=== PATIENT | female | born 1985 | race Caucasian/White ===

== ENCOUNTER 2016-10-28 23:36 | Emergency (ER) | payer BC, OTHER ==
[~2016-10-28] VITALS: Ht 175.3 cm; Wt 91.9 kg
[~2016-10-28 23:36] MED LIST: BCPILLS PO; BUPRTAB51 PO; OXYC1TAB3 PO; ZOLP10TA PO
[2016-10-28 23:46] VITALS: TEMP 36.5; Ht 175.3 cm; Wt 91.9 kg
[2016-10-29] MEDS ORDERED: ONDANSETRON INJ 2 MG/ML 2 ML VIAL IV STA (00:13)
[2016-10-29] MEDS ORDERED: MoRPHine SULFATE 4 MG/ML 1 ML CARP\\VIAL IV STA (00:13)
[2016-10-29 01:10] LABS: BASO % 0.3 %; BASO ABS # 0.03 K/uL (0-0.2); COMPLETE YES; EOS % 0.7 %; HEMATOCRIT 35.8 % (37-47); IG% 0.1 %; LYMPH % 28.7 %; LYMPH ABS # 2.92 K/uL (1.2-3.4); MEAN CELL VOLUME 91.1 fL (80-100); MEAN CORPUSCULAR HEMOGLOBIN 30.8 pg (25-34); MEAN CORPUSCULAR HGB CONC 33.8 g/dl (32-36); MEAN PLATELET VOLUME 9.6 fL (7.4-10.4); MONO % 7.5 %; NEUT % 62.7 %; PLATELET COUNT 375 K/uL (130-400); RED BLOOD COUNT 3.93 M/uL (4.2-5.4); WHITE BLOOD COUNT 10.16 K/uL (4.8-10.8)
[2016-10-29 01:21] LABS: URINE APPEARANCE CLEAR (CLEAR); URINE BILIRUBIN NEG (NEG); URINE COLOR YELLOW; URINE EPITHELIAL CELL AUTO >30 /lpf (0-5); URINE NITRITE NEG (NEG); URINE PH 5.5 (4.5-7.5); URINE SPECIFIC GRAVITY 1.028 (1.000-1.030); UROBILINOGEN NEG (NEG); ZZUR CULT IF INDIC CLEAN CATCH YES
[2016-10-29 01:24] LABS: MANUAL MICROSCOPIC REQUIRED? NO; REVIEW REQ? NO
[2016-10-29 01:28] LABS: BUN/CREATININE RATIO 21.9 (10-20); CALCIUM 8.7 mg/dl (8.5-10.1); CREATININE 0.58 mg/dl (0.60-1.20); POTASSIUM 3.7 mmol/L (3.5-5.1)
[2016-10-29 01:38] LABS: PREG INTERNAL NEGATIVE QC NEG CLEAR BACKGROUND; PREG INTERNAL POSITIVE QC POS CONTROL LINE
--- NOTE | 2016-10-29 02:40 | EMERGENCY ROOM VISIT NOTE ---
History First contact with patient: 00:09 Chief Complaint: PELVIC PAIN Stated Complaint: URETHRAL CYST CAUSING EXCRUCIATING PAIN History of Present Illness The patient is a 31 year old female who presents to the Emergency Room with complaints of vaginal pain for the past several years that got progressively worse. Patient has a cyst in her vaginal urethra area. She sees Dr. Valentin over an [place]. She's had multiple studies done and states that no is given her pain meds. She is requesting pain meds now. She states the cyst, larger in size. Patient denies vaginal itching, vaginal discharge, urinary symptoms, back pain, abdominal pain, fever, chills, vomiting, diarrhea. She does not feel at risk for STDs and does not want testing. She comes in now as Motrin is not helping for the pain. Review of Systems See HPI for pertinent positives & negatives. A total of 10 systems reviewed and were otherwise negative. Past Medical/Surgical History Medical Problems: (1) Abdominal pain (2) Depression (3) Injury of back Family History Cancer Diabetes mellitus Heart disease Hypertension Kidney disease Kidney stones Lung disease Seizures Social History Smoking Status: Never Smoker Alcohol Use: occasionally Marital Status: single Housing Status: lives with roommate Occupation Status: employed Current/Historical Medications Scheduled Control Pills ( Control Pills), 1 TAB PO DAILY Bupropion (Wellbutrin-Xl), 300 MG PO DAILY Scheduled PRN Zolpidem Tartrate (Ambien), 10 MG PO HS PRN for Sleep Allergies Coded Allergies: Sulfa Drugs (Unverified Allergy, Intermediate, RASH, 04/23/16) Amoxicillin (Verified Allergy, Mild, rash, 04/23/16) Tramadol (Verified Allergy, Unknown, UNKNOWN, 04/23/16) Physical Exam Vital Signs Date Time Temp Pulse Resp B/P Pulse Ox O2 Delivery O2 Flow Rate FiO2 10/28/16 23:46 36.5 115 20 122/82 96 Room Air Physical Exam VITALS: Vitals are noted on the nurse's note and reviewed by myself. Vital signs stable. GENERAL: White female, in no acute distress, nondiaphoretic, well-developed well -nourished. SKIN: Capillary reflex less than 2 seconds. HEENT: Normocephalic. PERRLA. EOMI. Nares patent. Mucous membranes moist. Neck is supple without nuchal rigidity. HEART: Regular rate and rhythm without murmurs gallops or rubs. LUNGS: Clear to auscultation bilaterally without wheezes, rales or rhonchi. No retractions or accessory muscle use. ABDOMEN: Positive bowel sounds x 4. Normal tympanic percussion. Soft, nontender, without masses or organomegaly. Cobb sign negative. No guarding or rebound tenderness. No CVA tenderness exam: No [place]'s gland abscess, normal external female genitalia, vaginal bulge visualized at 12:00. 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 MUSCULOSKELETAL: No gross musculoskeletal defects. No pedal edema. No calf tenderness. NEURO: Patient was alert and oriented to person place and time. Normal sensation to light and sharp touch. No focal neurological deficits. Medical Decision & Procedures Laboratory Results 10/29/16 00:36 Red Blood Count 3.93, Mean Corpuscular Volume 91.1, Mean Corpuscular Hemoglobin 30.8, Mean Corpuscular Hemoglobin Concent 33.8, Mean Platelet Volume 9.6, Neutrophils (%) (Auto) 62.7, Lymphocytes (%) (Auto) 28.7, Monocytes (%) (Auto) 7.5, Eosinophils (%) (Auto) 0.7, Basophils (%) (Auto) 0.3, Neutrophils # (Auto) 6.37, Lymphocytes # (Auto) 2.92, Monocytes # (Auto) 0.76, Eosinophils # (Auto) 0.07, Basophils # (Auto) 0.03 10/29/16 00:36 Test 10/29/16 00:36 10/29/16 00:40 White Blood Count 10.16 K/uL (4.8-10.8) Red Blood Count 3.93 M/uL (4.2-5.4) Hemoglobin 12.1 g/dL (12.0-16.0) Hematocrit 35.8 % (37-47) Mean Corpuscular Volume 91.1 fL (80-100) Mean Corpuscular Hemoglobin 30.8 pg (25-34) Mean Corpuscular Hemoglobin Concent 33.8 g/dl (32-36) Platelet Count 375 K/uL (130-400) Mean Platelet Volume 9.6 fL (7.4-10.4) Neutrophils (%) (Auto) 62.7 % Lymphocytes (%) (Auto) 28.7 % Monocytes (%) (Auto) 7.5 % Eosinophils (%) (Auto) 0.7 % Basophils (%) (Auto) 0.3 % Neutrophils # (Auto) 6.37 K/uL (1.4-6.5) Lymphocytes # (Auto) 2.92 K/uL (1.2-3.4) Monocytes # (Auto) 0.76 K/uL (0.11-0.59) Eosinophils # (Auto) 0.07 K/uL (0-0.5) Basophils # (Auto) 0.03 K/uL (0-0.2) RDW Standard Deviation 41.5 fL (36.4-46.3) RDW Coefficient of Variation 12.3 % (11.5-14.5) Immature Granulocyte % (Auto) 0.1 % Immature Granulocyte # (Auto) 0.01 K/uL (0.00-0.02) Anion Gap 11.0 mmol/L (3-11) Est Creatinine Clear Calc Drug Dose 168.2 ml/min Estimated GFR () 141.4 Estimated GFR (Non- 122.0 BUN/Creatinine Ratio 21.9 (10-20) Calcium Level 8.7 mg/dl (8.5-10.1) Human Chorionic Gonadotropin, Qual NEG (NEG) Urine Color YELLOW Urine Appearance CLEAR (CLEAR) Urine pH 5.5 (4.5-7.5) Urine Specific [place] 1.028 (1.000-1.030) Urine Protein NEG (NEG) Urine Glucose (UA) NEG (NEG) Urine Ketones TRACE (NEG) Urine Occult Blood TRACE (NEG) Urine Nitrite NEG (NEG) Urine Bilirubin NEG (NEG) Urine Urobilinogen NEG (NEG) Urine Leukocyte Esterase NEG (NEG) Urine WBC (Auto) 1-5 /hpf (0-5) Urine RBC (Auto) 5-10 /hpf (0-4) Urine Hyaline Casts (Auto) 1-5 /lpf (0-5) Urine Epithelial Cells (Auto) >30 /lpf (0-5) Urine Bacteria (Auto) 2+ (NEG) Medications Administered Medications (Trade) Dose Ordered Sig/Kristi Route Start Time Stop Time Status Last Admin Dose Admin Morphine Sulfate (MoRPHine SULFATE INJ) 4 mg NOW STAT IV 10/29/16 00:13 10/29/16 00:15 DC 10/29/16 00:50 4 MG Ondansetron HCl (Zofran Inj) 4 mg NOW STAT IV 10/29/16 00:13 10/29/16 00:15 DC 10/29/16 00:49 4 MG ED Course Prior records/ancillary studies reviewed. Triage Nursing notes reviewed. Additional history obtained from sister The patient's history was concerning for pelvic pain. Differential diagnosis: Differential diagnosis includes salpingitis, , ectopic , incomplete , septic , ruptured ovarian cyst, ovarian torsion, Mittelschmerz, endometritis, dysmenorrhea, appendicitis, PID, and others. Physical examination findings: As above. ER treatment provided: Morphine, Zofran On reassessment the patient felt better. Diagnostics interpreted by me: The labs revealed no worrisome leukocytosis. Negative urine. Imaging studies: US PELVIS: Endometrial stripe measures 7 mm. Ovaries not visualized; no adnexal mass identified. No free fluid. No visualized vaginal mass/cyst. Radiologist: Joseph Nation M.D. Exam and history seem consistent with patient's known vaginal bulge which has been present for greater than 4 years. She is strongly encouraged to follow-up as scheduled next week with COMPUTER SYSTEM VALIDATION SPECIALIST for definitive care for her ongoing issues. She was counseled on obtaining all her narcotics from family medicine or pain management. She is advised to return to the intermediate for severe pain, fevers, vomiting, worsening signs or symptoms or as needed. Patient did not have acute abdomen on exam. She was well-appearing. By the evaluation outlined above emergent etiologies such as salpingitis, , ectopic , incomplete , septic , ruptured ovarian cyst, ovarian torsion, Mittelschmerz, endometritis, dysmenorrhea, appendicitis, PID, as well as others were deemed relatively unlikely. The pt informed about the findings as listed above. All questions were answered and pleased with the treatment. Return instructions were outlined and the patient was discharged in stable condition. Outpatient prescription management: OxyIR Referral: The patient was referred back to their COMPUTER SYSTEM VALIDATION SPECIALIST for follow-up in 2 to 3 days for a recheck of the current condition. Case reviewed by attending. Medical Decision As above Impression Primary Impression: Vaginal pain Departure Information Dispostion Home / Self-Care Condition GOOD Referrals RV. Bond MD (PCP) Patient Instructions [employer] Additional Instructions DO NOT drive, drink alcohol, operate machinery, or perform dangerous activities today. You were given medications in the ER that can affect your ability to safely function or operate a vehicle. Oxycodone (OxyIR) 5mg: Take 1-2 pills every four hours for breakthrough pain. Avoid alcohol, operating machinery or dangerous equipment, working on ladders or roofs, DRIVING, or situations where being under the influence may be dangerous. It is recommended to use an [id number] stool softener such as Colace, 100mg twice daily while taking this medication to avoid constipation. Ibuprofen(Motrin, Advil) may be used for fever or pain. Use 600mg every six hours as needed. Take with food. Avoid using more than 2400mg in a 24 hour period. Do not use 2400mg per day for more than three consecutive days without physician direction. Prolonged inappropriate use can lead to stomach upset or ulcers. This medication can be taken if you need to drive, work, or perform activities which may be dangerous when taking narcotic pain medication. (AND/OR) Acetaminophen(Tylenol) may be used for fever or pain. Use 1000mg every six hours as needed. Avoid using more than 3000mg in a 24 hour period. This medication can be taken if you need to drive, work, or perform activities which may be dangerous when taking narcotic pain medication. Continue current medications. Follow up with your COMPUTER SYSTEM VALIDATION SPECIALIST as scheduled next week for definitive care for your ongoing issues. Obtain all narcotics from family medicine or pain management. Return to ER sooner for severe pain, fevers, vomiting, worsening signs or symptoms or as needed.
[2016-10-29] MEDS ORDERED: OXYCODONE IR HOME PACK PO ONE (02:45)
[2016-10-29 03:45] VITALS: BP 124/82; PULSE 78; O2SAT 98
--- NOTE | 2016-10-29 06:25 | DIAGNOSTIC IMAGING REPORT ---
EXAMINATION: PELVIC ULTRASOUND CLINICAL HISTORY: vaginal mass PAIN COMPARISON STUDY: None FINDINGS: The uterus measured 6.7 cm. The endometrial stripe measured 7 mm. The right ovary measured 2.5 cm. The left ovary measured 2.7 cm. There is no ultrasonographic evidence of ovarian torsion. It should be noted that ovarian torsion can be present with normal Doppler ultrasonographic findings. There was no evidence of pathologic free pelvic fluid. IMPRESSION: Negative pelvic ultrasound. No evidence for abnormal mass or cyst by ultrasound criteria. Electronically signed by: Aries Cruz M.D. 10/29/2016 6:23 AM Dictated Date/Time: 10/29/2016 6:16 AM
--- NOTE | 2016-10-31 18:55 | Pharmacy Progress Note ---
ED Pharmacist Culture FollowUp Date of Service: Oct 31, 2016. Gardnerella growing in urine culture. Patient denied urinary symptoms. Urinalysis with > 30 epithelial cells. Gardnerella likely contaminant. No intervention required. Case discussed with Dr. No.
== END 2016-10-29 03:50 | disposition home or self-care (01) ==
LOC: C.EDB 23:38 → C.EDA 10-29 03:50
DX: N94.819 Vulvodynia, unspecified (principal); F32.9 Major depressive disorder, single episode, unspecified; Z79.899 Other long term (current) drug therapy; Z88.1 Allergy status to other antibiotic agents; Z88.2 Allergy status to sulfonamides; Z88.8 Allergy status to other drugs, medicaments and biological substances; Z80.9 Family history of malignant neoplasm, unspecified; Z83.3 Family history of diabetes mellitus; Z82.49 Family history of ischemic heart disease and other diseases of the circulatory system; Z84.1 Family history of disorders of kidney and ureter; Z82.0 Family history of epilepsy and other diseases of the nervous system